=== PATIENT | female | born 1955 | race Caucasian/White ===

== ENCOUNTER 2017-07-12 21:31 | Emergency (ER) | payer BC, OTHER ==
[2017-07-12 21:46] VITALS: BP 124/67; PULSE 85; RESP 23; TEMP 98.7
[2017-07-12] MEDS ORDERED: ALPR.5 PO (21:54)
[2017-07-12] MEDS ORDERED: OFFICE MEDICATION PO (21:54)
[2017-07-12] MEDS ORDERED: SODIUM CHLOR 0.9% 1000 ML INJ 1,000 ML IV ONE (22:15)
[2017-07-12 22:19] VITALS: RESP 17; O2SAT 93
--- NOTE | 2017-07-12 22:34 | PD ---
HPI Chief Complaint: Psychiatric Symptoms Time Seen by Provider: 21:56 Travel History International Travel<30 days: No Contact w/Intl Traveler<30days: No Traveled to known affect area: No History of Present Illness HPI 61-year-old female that presents to the ED for evaluation of Aponte act an overdose on Xanax. Per Aponte act and patient she took about 20 Xanax pills. Per report I was given she took 21.5 mg Xanax pills as well as vodka and beer. Per patient she did this in an attempt to help with her stress and possibly in her life. Per patient she is dealing with a lot of financial issues as well as family issues. Per patient she takes care of a lot of her family and she has currently no job and has had a hard time paying the bills. She states that for the most part she feels suicidal. She feels depressed. When I asked her if she took anything else she states that "would not that be nice ". She denies taking anything else otherwise. She denies any homicidal ideation. She denies any falls or injuries. called the police to get her evaluated. She does tell me that she does have a history of Aponte act in the past. Allergy to penicillins. History is somewhat limited because of patient's current intoxication. She appears to have no remorse about what happened. She denies any other medical issues to me. PFSH Past Medical History Medical History: Unable to Obtain ?: Not Past Surgical History Surgical History: Unable to Obtain Social History Alcohol Use: Yes Tobacco Use: Yes Substance Use: No Allergies-Medications (Allergen,Severity, Reaction): Coded Allergies: Penicillins (Verified Allergy, Unknown, 07/12/17) Reported Meds & Prescriptions Reported Meds & Active Scripts Active Reported Office Medication (Miscellaneous Medication) Misc 40 Mg PO Xanax (Alprazolam) 0.5 Mg Tab 0.5 Mg PO Q8H PRN Review of Systems ROS Limitations: Intoxication Except as stated in HPI: all other systems reviewed are Neg Physical Exam Exam Limitations: Intoxication Narrative GENERAL: SKIN: Warm and dry. HEAD: Atraumatic. Normocephalic. EYES: Pupils equal and round. No scleral icterus. No injection or drainage. ENT: No nasal bleeding or discharge. Mucous membranes pink and moist. Tongue is midline. No uvula deviation. NECK: Trachea midline. No JVD. CARDIOVASCULAR: Regular rate and rhythm. No murmurs, S3, S4. RESPIRATORY: No accessory muscle use. Clear to auscultation. Breath sounds equal bilaterally. GASTROINTESTINAL: Abdomen soft, non-tender, nondistended. Hepatic and splenic margins not palpable. MUSCULOSKELETAL: Extremities without clubbing, cyanosis, or edema. No obvious deformities. Full range of motion of the upper and lower extremities bilaterally. 2+ pulses bilaterally. NEUROLOGICAL: Awake and alert. No obvious cranial nerve deficits. Motor grossly within normal limits. Five out of 5 muscle strength in the arms and legs. Normal speech. PSYCHIATRIC: Intoxicated mood and affect; insight and judgment questionable Data Data Last Documented VS Vital Signs Date Time Temp Pulse Resp B/P (MAP) Pulse Ox O2 Delivery O2 Flow Rate FiO2 07/12/17 22:19 17 93 Nasal Cannula 2.00 07/12/17 21:46 98.7 85 124/67 (86) Orders Orders Complete Blood Count With Diff (07/12/17 22:02) Comprehensive Metabolic Panel (07/12/17 22:02) Thyroid Stimulating Hormone (07/12/17 22:02) Urinalysis - C+S If Indicated (07/12/17 22:02) Oximetry (07/12/17 22:02) Iv Access Insert/Monitor (07/12/17 22:02) Ecg Monitoring (07/12/17 22:02) Psych Screen (07/12/17 22:02) Drug Screen, Random Urine (07/12/17 22:02) Alcohol (Ethanol) (07/12/17 22:02) Salicylates (Aspirin) (07/12/17 22:02) Tylenol (Acetaminophen) (07/12/17 22:02) Sodium Chlor 0.9% 1000 Ml Inj (Ns 1000 M (07/12/17 22:15) ^ Sitter (07/12/17 22:03) MDM Medical Decision Making Medical Screen Exam Complete: Yes Emergency Medical Condition: Yes Medical Record Reviewed: Yes Differential Diagnosis Depression versus suicidal ideation versus anxiety versus adjustment disorder versus mood disorder versus bipolar disorder versus schizophrenia versus paranoid disorder versus psychosis versus substance abuse versus alcohol abuse versus alcohol induced psychosis versus homicidality addition versus cutting versus personality disorder versus benzodiazepine overdose Narrative Course 61-year-old female that presents to the ED for evaluation of psychiatric evaluation. Patient was properly examined and was found to have signs and symptoms consistent with benzodiazepine overdose and Aponte act. Patient appears to be stable at this time but does appear to be intoxicated. Case was discussed with my attending Dr. Brooks who agrees with plan. Labs ordered. Patient was given IV fluids. At this time patient will be observed and will be medically clear once labs are back. Case will be signed out to my attending pending medical clearance. Diagnosis Primary Impression: Overdose of benzodiazepine Qualified Codes: T42.4X2A - Poisoning by benzodiazepines, intentional self- harm, initial encounter Additional Impression: Depression Qualified Codes: F33.1 - Major depressive disorder, recurrent, moderate Jamie Carrion Jul 12, 2017 22:34
[2017-07-12 22:36] LABS: BASOPHIL # 0.1 TH/MM3 (0-0.2); BASOPHIL % 0.6 % (0.0-2.0); EOSINOPHIL # 0.3 TH/MM3 (0-0.4); EOSINOPHIL % 3.7 % (0.0-4.0); HEMATOCRIT 40.8 % (35.0-46.0); HEMOGLOBIN 14.2 GM/DL (11.6-15.3); LYMPH % 43.2 % (9.0-44.0); LYMPHOCYTE # 3.9 TH/MM3 (1.0-4.8); MEAN CELL VOLUME 88.7 FL (80.0-100.0); MEAN CORPUSCULAR HEMOGLOBIN 30.9 PG (27.0-34.0); MEAN CORPUSCULAR HGB CONC 34.8 % (32.0-36.0); MEAN PLATELET VOLUME 8.1 FL (7.0-11.0); MONO % 8.5 % (0.0-8.0); MONOCYTE # 0.8 TH/MM3 (0-0.9); PLATELET COUNT 199 TH/MM3 (150-450); RED CELL DISTRIBUTION WIDTH 12.3 % (11.6-17.2)
[2017-07-12 22:57] LABS: ACETAMINOPHEN LESS THAN 2.0 MCG/ML (10.0-30.0); ALBUMIN 3.5 GM/DL (3.4-5.0); AST (GOT) 42 U/L (15-37); BICARBONATE 24.6 MEQ/L (21.0-32.0); BLOOD UREA NITROGEN 16 MG/DL (7-18); CHLORIDE 109 MEQ/L (98-107); CREATININE 0.83 MG/DL (0.50-1.00); GLOMERULAR FILTRATION RATE 70 ML/MIN (>89); GLUCOSE,RANDOM 112 MG/DL (74-106); SODIUM (NA) 144 MEQ/L (136-145)
[2017-07-12 23:02] LABS: ALKALINE PHOSPHATASE 51 U/L (45-117); ALT (GPT) 60 U/L (10-53); TOTAL BILIRUBIN ADULT 0.2 MG/DL (0.2-1.0); TOTAL PROTEIN 6.9 GM/DL (6.4-8.2)
[2017-07-12 23:43] VITALS: BP 110/59; PULSE 97; RESP 17; O2SAT 97
--- NOTE | 2017-07-13 00:30 | PD ---
Data Data Last Documented VS Vital Signs Date Time Temp Pulse Resp B/P (MAP) Pulse Ox O2 Delivery O2 Flow Rate FiO2 07/12/17 23:43 97 17 110/59 (76) 97 Nasal Cannula 2.00 07/12/17 21:46 98.7 Orders Orders Complete Blood Count With Diff (07/12/17 22:02) Comprehensive Metabolic Panel (07/12/17 22:02) Thyroid Stimulating Hormone (07/12/17 22:02) Urinalysis - C+S If Indicated (07/12/17 22:02) Oximetry (07/12/17 22:02) Iv Access Insert/Monitor (07/12/17 22:02) Ecg Monitoring (07/12/17 22:02) Psych Screen (07/12/17 22:02) Drug Screen, Random Urine (07/12/17 22:02) Alcohol (Ethanol) (07/12/17 22:02) Salicylates (Aspirin) (07/12/17 22:02) Tylenol (Acetaminophen) (07/12/17 22:02) Sodium Chlor 0.9% 1000 Ml Inj (Ns 1000 M (07/12/17 22:15) ^ Sitter (07/12/17 22:03) Labs Laboratory Tests Test 07/12/17 22:13 White Blood Count 9.0 TH/MM3 Red Blood Count 4.60 MIL/MM3 Hemoglobin 14.2 GM/DL Hematocrit 40.8 % Mean Corpuscular Volume 88.7 FL Mean Corpuscular Hemoglobin 30.9 PG Mean Corpuscular Hemoglobin Concent 34.8 % Red Cell Distribution Width 12.3 % Platelet Count 199 TH/MM3 Mean Platelet Volume 8.1 FL Neutrophils (%) (Auto) 44.0 % Lymphocytes (%) (Auto) 43.2 % Monocytes (%) (Auto) 8.5 % Eosinophils (%) (Auto) 3.7 % Basophils (%) (Auto) 0.6 % Neutrophils # (Auto) 4.0 TH/MM3 Lymphocytes # (Auto) 3.9 TH/MM3 Monocytes # (Auto) 0.8 TH/MM3 Eosinophils # (Auto) 0.3 TH/MM3 Basophils # (Auto) 0.1 TH/MM3 CBC Comment DIFF FINAL Differential Comment Blood Urea Nitrogen 16 MG/DL Creatinine 0.83 MG/DL Random Glucose 112 MG/DL Total Protein 6.9 GM/DL Albumin 3.5 GM/DL Calcium Level 9.0 MG/DL Alkaline Phosphatase 51 U/L Aspartate Amino Transf (AST/SGOT) 42 U/L Alanine Aminotransferase (ALT/SGPT) 60 U/L Total Bilirubin 0.2 MG/DL Sodium Level 144 MEQ/L Potassium Level 3.6 MEQ/L Chloride Level 109 MEQ/L Carbon Dioxide Level 24.6 MEQ/L Anion Gap 10 MEQ/L Estimat Glomerular Filtration Rate 70 ML/MIN Thyroid Stimulating Hormone 3rd Gen 1.550 uIU/ML Salicylates Level LESS THAN 1.7 MG/DL Acetaminophen Level LESS THAN 2.0 MCG/ML Ethyl Alcohol Level 125 MG/DL MDM Supervised Visit with ROBERTA: Yes Narrative Course I, Dr. Brooks, have reviewed the advance practice practitioner's documentation and am in agreement, met with the patient face to face, made the diagnosis, and the medical decision making was done by me. See his note for further details. Briefly this is a 61-year-old female who intentionally overdosed on benzodiazepines and alcohol. Tylenol and salicylate levels are negative. Alcohol level is 145. Patient has been medically cleared for psychiatric evaluation and disposition by them. Diagnosis Primary Impression: Overdose of benzodiazepine Qualified Codes: T42.4X2A - Poisoning by benzodiazepines, intentional self- harm, initial encounter Additional Impression: Depression Qualified Codes: F33.1 - Major depressive disorder, recurrent, moderate Ronnie Brooks MD Jul 13, 2017 00:30
[2017-07-13 01:44] VITALS: BP 125/66; PULSE 99; RESP 21; O2SAT 97
[2017-07-13 06:32] VITALS: BP 140/84; PULSE 81; RESP 17; O2SAT 100
[2017-07-13 08:27] VITALS: BP 138/92; PULSE 78; RESP 16; O2SAT 99
[2017-07-13 13:00] VITALS: BP 167/80; PULSE 86; RESP 20; TEMP 98.4; O2SAT 95
--- NOTE | 2017-07-13 14:57 | PD ---
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 The patient' s family called the police after the patient reportedly took # 20 Xanax0.5 mg pills to go to sleep. The patient was also intoxicated with blood alcohol level of 125 upon arrival to the ED. She reported to the ED staff that she did take the pills in an attempt to help her with her stress and possibly end her life. The patient was monitored in secure environment and she did not present any suicidality or any behavioral concerns. EMR is reviewed. No previous contact with [facility] psychiatry Department. Patient is seen and J pot. She is clinically sober. She is dressed in hospital gown and maintaining hygiene. Her speech is clear and logical, of normal rate and tone. The patient with no evidence of any thought process or content disorder. Does not appear internally stimulated. No evidence of any adelita or hypomania. She makes light of her taking the extra medication and insist that it was not a suicidal attempt. She states "I wanted to get a good night sleep and I was not trying to kill myself". She does not deny that she is drinking alcohol every day and states" a nice cold beer with a touch of salt is the best". She goes on to state that she is trying not to take the Xanax 3 times a day and that she has cut it down to only once a day. Patient at this time is denying any symptoms of depression. She is requesting to be discharged as she had planned to take her granddaughter shopping. . PFS Past Medical History Medical History: Unable to Obtain ?: Not Past Surgical History Surgical History: Unable to Obtain Psychiatric History Psychiatric History Hx Psychiatric Treatment: Patient was seen at [facility] 2012 also under the influence of ETOH. No previous hx of suicide attempt. No hx of self injurious behavior. Has been treated for anxiety by her primary care physician. History of Inpatient Treatment: Yes Guns or firearms in home: No Social History 25 years. Currently lives with her . She will be starting a new job on Saturday in a [employer]. Hx Alcohol Use: Yes Hx Tobacco Use: Yes Hx Substance Use: No Substance Use Type: Alcohol Other Substances Used: Patient denies Hx of Substance Use Treatment: No Family Psychiatric History Mother with reported history of bipolar disorder, aunt with bipolar disorder. Allergies-Medications (Allergen,Severity, Reaction): Coded Allergies: Penicillins (Verified Allergy, Unknown, 07/12/17) Reported Meds & Prescriptions Reported Meds & Active Scripts Active Reported Office Medication (Miscellaneous Medication) Misc 40 Mg PO Xanax (Alprazolam) 0.5 Mg Tab 0.5 Mg PO Q8H PRN Review of Systems Psychiatric: COMPLAINS OF: Anxiety Except as stated in HPI: all other systems reviewed are Neg Mental Status Examination Appearance: Appropriate (Dressed in hospital gown) Consciousness: Alert Orientation: x4 Motor Activity: Normal gait Speech: Unremarkable Language: Adequate Fund of Knowledge: Adequate Attention and Concentration: Adequate Memory: Unremarkable Mood: Anxious Affect: Appropriate Thought Process & Associations: Intact, Logical, Goal directed Thought Content: Appropriate Hallucination Type: None Delusion Type: None Suicidal Ideation: No Suicidal Plan: No Suicidal Intention: No Homicidal Ideation: No Homicidal Plan: No Homicidal Intention: No Insight: Fair Judgment: Impulsive MDM Medical Decision Making Medical Record Reviewed: Yes Assessment/Plan 61-year-old, female with reported history of anxiety that presents to the ED under a aponte act initiated by law enforcement. The patient' s family called the police after the patient reportedly took # 20 Xanax0.5 mg pills to go to sleep. The patient was also intoxicated with blood alcohol level of 125 upon arrival to the ED. She reported to the ED staff that she did take the pills in an attempt to help her with her stress and possibly end her life. The patient was monitored in secure environment and she did not present any suicidality or any behavioral concerns. The patient wants clinically sober and denies any suicidal or homicidal ideation, intent or plan. She is future oriented and wants to be discharged. Staff have obtained collateral information with her . He has no concerns for her safety if she is discharged. She states that she will never harm herself because of her granddaughters. She does not feel that she has a problem with alcohol use as well. She was provided psychoeducation. The Aponte act as lifted. Psychiatrically clear for discharge from the ED Orders Orders Complete Blood Count With Diff (07/12/17 22:02) Comprehensive Metabolic Panel (07/12/17 22:02) Thyroid Stimulating Hormone (07/12/17 22:02) Urinalysis - C+S If Indicated (07/12/17 22:02) Oximetry (07/12/17 22:02) Iv Access Insert/Monitor (07/12/17 22:02) Ecg Monitoring (07/12/17 22:02) Psych Screen (07/12/17 22:02) Drug Screen, Random Urine (07/12/17 22:02) Alcohol (Ethanol) (07/12/17 22:02) Salicylates (Aspirin) (07/12/17 22:02) Tylenol (Acetaminophen) (07/12/17 22:02) Sodium Chlor 0.9% 1000 Ml Inj (Ns 1000 M (07/12/17 22:15) ^ Sitter (07/12/17 22:03) Diet Regular Basic (07/13/17 Dinner) Results Vital Signs Date Time Temp Pulse Resp B/P (MAP) Pulse Ox O2 Delivery O2 Flow Rate FiO2 07/13/17 13:00 98.4 86 20 167/80 (109) 95 Room Air 07/13/17 08:27 78 16 138/92 (107) 99 Room Air 07/13/17 06:32 81 17 140/84 (102) 100 Room Air 07/13/17 01:44 99 21 125/66 (85) 97 Room Air 07/12/17 23:43 97 17 110/59 (76) 97 Nasal Cannula 2.00 07/12/17 22:19 17 93 Nasal Cannula 2.00 07/12/17 21:46 98.7 85 23 124/67 (86) Laboratory Tests Test 07/12/17 22:13 White Blood Count 9.0 Red Blood Count 4.60 Hemoglobin 14.2 Hematocrit 40.8 Mean Corpuscular Volume 88.7 Mean Corpuscular Hemoglobin 30.9 Mean Corpuscular Hemoglobin Concent 34.8 Red Cell Distribution Width 12.3 Platelet Count 199 Mean Platelet Volume 8.1 Neutrophils (%) (Auto) 44.0 Lymphocytes (%) (Auto) 43.2 Monocytes (%) (Auto) 8.5 Eosinophils (%) (Auto) 3.7 Basophils (%) (Auto) 0.6 Neutrophils # (Auto) 4.0 Lymphocytes # (Auto) 3.9 Monocytes # (Auto) 0.8 Eosinophils # (Auto) 0.3 Basophils # (Auto) 0.1 CBC Comment DIFF FINAL Differential Comment Blood Urea Nitrogen 16 Creatinine 0.83 Random Glucose 112 Total Protein 6.9 Albumin 3.5 Calcium Level 9.0 Alkaline Phosphatase 51 Aspartate Amino Transf (AST/SGOT) 42 Alanine Aminotransferase (ALT/SGPT) 60 Total Bilirubin 0.2 Sodium Level 144 Potassium Level 3.6 Chloride Level 109 Carbon Dioxide Level 24.6 Anion Gap 10 Estimat Glomerular Filtration Rate 70 Thyroid Stimulating Hormone 3rd Gen 1.550 Salicylates Level LESS THAN 1.7 Acetaminophen Level LESS THAN 2.0 Ethyl Alcohol Level 125 Diagnosis Primary Impression: Overdose of benzodiazepine Additional Impressions: Adjustment disorder Alcohol-induced mood disorder Ruled Out: Depression Psychiatrically Cleared: Yes Med/ Other Pt Specific Info: No Change to Meds Disposition: 01 DISCHARGE HOME Condition: Stable Problem Qualifiers Primary Impression: Overdose of benzodiazepine Qualified Codes: T42.4X2A - Poisoning by benzodiazepines, intentional self- harm, initial encounter Additional Impressions: Adjustment disorder Qualified Codes: F43.22 - Adjustment disorder with anxiety Neida Heredia [facility] Jul 13, 2017 14:57
--- NOTE | 2017-07-13 15:28 | PD ---
Physical Exam Time Seen by Provider: 15:21 NORA Fernandez has evaluated the patient, lifted the Aponte act and cleared the patient for discharge. Data Data Last Documented VS Vital Signs Date Time Temp Pulse Resp B/P (MAP) Pulse Ox O2 Delivery O2 Flow Rate FiO2 07/13/17 13:00 98.4 86 20 167/80 (109) 95 Room Air 07/12/17 23:43 2.00 Orders Orders Complete Blood Count With Diff (07/12/17 22:02) Comprehensive Metabolic Panel (07/12/17 22:02) Thyroid Stimulating Hormone (07/12/17 22:02) Urinalysis - C+S If Indicated (07/12/17 22:02) Oximetry (07/12/17 22:02) Iv Access Insert/Monitor (07/12/17 22:02) Ecg Monitoring (07/12/17 22:02) Psych Screen (07/12/17 22:02) Drug Screen, Random Urine (07/12/17 22:02) Alcohol (Ethanol) (07/12/17 22:02) Salicylates (Aspirin) (07/12/17 22:02) Tylenol (Acetaminophen) (07/12/17 22:02) Sodium Chlor 0.9% 1000 Ml Inj (Ns 1000 M (07/12/17 22:15) ^ Sitter (07/12/17 22:03) Diet Regular Basic (07/13/17 Dinner) Labs Laboratory Tests Test 07/12/17 22:13 White Blood Count 9.0 TH/MM3 Red Blood Count 4.60 MIL/MM3 Hemoglobin 14.2 GM/DL Hematocrit 40.8 % Mean Corpuscular Volume 88.7 FL Mean Corpuscular Hemoglobin 30.9 PG Mean Corpuscular Hemoglobin Concent 34.8 % Red Cell Distribution Width 12.3 % Platelet Count 199 TH/MM3 Mean Platelet Volume 8.1 FL Neutrophils (%) (Auto) 44.0 % Lymphocytes (%) (Auto) 43.2 % Monocytes (%) (Auto) 8.5 % Eosinophils (%) (Auto) 3.7 % Basophils (%) (Auto) 0.6 % Neutrophils # (Auto) 4.0 TH/MM3 Lymphocytes # (Auto) 3.9 TH/MM3 Monocytes # (Auto) 0.8 TH/MM3 Eosinophils # (Auto) 0.3 TH/MM3 Basophils # (Auto) 0.1 TH/MM3 CBC Comment DIFF FINAL Differential Comment Blood Urea Nitrogen 16 MG/DL Creatinine 0.83 MG/DL Random Glucose 112 MG/DL Total Protein 6.9 GM/DL Albumin 3.5 GM/DL Calcium Level 9.0 MG/DL Alkaline Phosphatase 51 U/L Aspartate Amino Transf (AST/SGOT) 42 U/L Alanine Aminotransferase (ALT/SGPT) 60 U/L Total Bilirubin 0.2 MG/DL Sodium Level 144 MEQ/L Potassium Level 3.6 MEQ/L Chloride Level 109 MEQ/L Carbon Dioxide Level 24.6 MEQ/L Anion Gap 10 MEQ/L Estimat Glomerular Filtration Rate 70 ML/MIN Thyroid Stimulating Hormone 3rd Gen 1.550 uIU/ML Salicylates Level LESS THAN 1.7 MG/DL Acetaminophen Level LESS THAN 2.0 MCG/ML Ethyl Alcohol Level 125 MG/DL MDM Supervised Visit with ROBERTA: No Narrative Course NORA Carrasquillo has evaluated the patient, lifted the Aponte act and cleared the patient for discharge. Patient contracts safety. Denies suicidal or homicidal ideations. Patient will be provided community resource packet to [facility] for follow-up. Has friends and family for support. Patient was medically cleared by alternate provider prior to psych screening. Patient has been evaluated by psychiatry and and is now cleared for discharge. Diagnosis Primary Impression: Overdose of benzodiazepine Qualified Codes: T42.4X2A - Poisoning by benzodiazepines, intentional self- harm, initial encounter Additional Impressions: Alcohol-induced mood disorder Adjustment disorder Qualified Codes: F43.20 - Adjustment disorder, unspecified Depression Qualified Codes: F33.1 - Major depressive disorder, recurrent, moderate Referrals: KELLEY (Out patient) [facility] Primary Care Physician Psychiatrist [facility] Patient Instructions: Abuse of Alcohol (ED), Alcohol Dependence (ED), Alcohol Intoxication (ED), Depression (ED), General Instructions, Mood Disorders (ED) Additional Instruction: Contract safety to your self and others Follow-up with psychiatry Follow-up with primary care provider Follow-up with Eliseo Fernandez Return to the emergency department immediately with worsening of symptoms Med/Other Pt SpecificInfo: No Change to Meds, No Meds Exist/No RX given Disposition: 01 DISCHARGE HOME Condition: Stable Myah Ferreira Jul 13, 2017 15:28
== END 2017-07-13 15:40 | disposition home or self-care (01) ==
LOC: NEPE 21:31 → NEPJ 07-13 15:40
DX: T42.4X1A Poisoning by benzodiazepines, accidental (unintentional), initial encounter (principal); F33.1 Major depressive disorder, recurrent, moderate; F10.14 Alcohol abuse with alcohol-induced mood disorder; F10.129 Alcohol abuse with intoxication, unspecified; Y90.6 Blood alcohol level of 120-199 mg/100 ml; F43.22 Adjustment disorder with anxiety; Z72.0 Tobacco use
CPT/HCPCS: 80053; 80307; 84443; 85025; 96360; 96361; 99284; J7030